=== PATIENT | female | born 1995 | race Two or more races ===

== ENCOUNTER 2019-07-03 10:23 | Emergency (ER) | payer MEDICAID, OTHER ==
[~2019-07-03] VITALS: Ht 167.6 cm; Wt 63.5 kg
--- NOTE | 2019-07-03 10:31 | NUR ---
patient came in to the ER c/o cough x 3 days, afebrile, no SOB, on room air, breathing evenly and unlabored. kept comfortable, will continue to monitor accordingly.
--- NOTE | 2019-07-03 10:41 | NUR ---
SEEN AND EXAMINED BY .
--- NOTE | 2019-07-03 10:55 | NUR ---
RT AT BEDSIDE FOR BREATHING TX
--- NOTE | 2019-07-03 10:59 | NUR ---
FLAT MACHINE CUTTER AT BEDSIDE
[2019-07-03] MEDS ORDERED: ALBUTEROL FS 2.5 MG/3 ML VIAL.NEB NEB ONE (11:00)
[2019-07-03] MEDS ORDERED: IPRATROPIUM NEB FS 0.5 MG/2.5 ML AMPUL.NEB NEB ONE (11:00)
[2019-07-03 11:31] VITALS: BP 122/78
--- NOTE | 2019-07-03 11:31 | NUR ---
Patient discharged to home in stable condition. Written and verbal after care instructions given. Patient verbalizes understanding of instruction.
== END 2019-07-03 11:31 | disposition home or self-care (01) ==
LOC: ER 10:28
DX: J45.909 Unspecified asthma, uncomplicated (principal); Z98.890 Other specified postprocedural states
CPT/HCPCS: 71045-TC

== ENCOUNTER 2023-02-02 12:31 | Emergency (ER) | payer MEDICAID, OTHER ==
[~2023-02-02] VITALS: Ht 167.6 cm; Wt 68.0 kg
[2023-02-02 12:31] VITALS: BP 136/79
--- NOTE | 2023-02-02 12:31 | NUR ---
BIBS C/O SORE THROAT SINCE THIS WEDNESDAY STATED SHE HAD A NEW SEXUAL PARTNER A COUPLE DAYS PRIOR TO WEDNESDAY AND HAS CONCERNS
[2023-02-02] MEDS ORDERED: CEFTRIAXONE 500 MG VIAL ONE (12:49)
[2023-02-02] MEDS ORDERED: AMOX-430 PO (12:55)
[2023-02-02] MEDS ORDERED: DOXY100C2 PO (12:55)
[2023-02-02] MEDS ORDERED: IBUP-1955 PO (12:55)
[2023-02-02] MEDS ORDERED: CEFTRIAXONE 1 G VIAL IM ONE (13:00)
[2023-02-02] MEDS ORDERED: DEXAMETHASONE SOD PHOSPHATE 10 MG/ML VIAL IM ONE (13:00)
--- NOTE | 2023-02-02 13:09 | NUR ---
URINE SAMPLE OBTAINED SENT TO LAB
--- NOTE | 2023-02-02 13:09 | NUR ---
STREP AND CHLAMIDIA SWAB DONE , SENT TO LAB
[2023-02-02] MEDS ORDERED: DEXAMETHASONE SOD PHOSPHATE 10 MG/ML VIAL ONE (13:14)
--- NOTE | 2023-02-02 13:26 | NUR ---
Patient discharged to home in stable condition. Written and verbal after care instructions given. Patient verbalizes understanding of instruction.
== END 2023-02-02 13:30 | disposition home or self-care (01) ==
LOC: ER 12:35
DX: J02.9 Acute pharyngitis, unspecified (principal); Z11.3 Encounter for screening for infections with a predominantly sexual mode of transmission
CPT/HCPCS: 99284; 96372 ×2; 87880; 87491 ×2; 87591; J1100; J0696; 86403-TC

== ENCOUNTER 2025-09-16 13:10 | Emergency (ER) | payer OTHER ==
[~2025-09-16] VITALS: Ht 167.6 cm; Wt 66.7 kg
[~2025-09-16 13:10] MED LIST: AMOX-430 PO; DOXY100C2 PO; IBUP-1955 PO
[2025-09-16 13:16] VITALS: BP 127/76; TEMP 98.1; O2SAT 100
[2025-09-16] MEDS ORDERED: IBUPROFEN 600 MG TABLET ONE (13:28)
[2025-09-16] MEDS: IBUPROFEN 600 MG TABLET PO ONE (13:30)
[2025-09-16] MEDS ORDERED: IBUP-1953 PO (14:20)
[2025-09-16] MEDS ORDERED: BENZ1LOZ30 MM (14:20)
[2025-09-16] MEDS ORDERED: FEXO180T94 PO (14:20)
[2025-09-16 15:44] LABS: MONOTEST NEGATIVE (NEGATIVE)
== END 2025-09-16 14:35 | disposition home or self-care (01) ==
LOC: ER 13:10
DX: J06.9 Acute upper respiratory infection, unspecified (principal); R09.82 Postnasal drip; Z20.822 Contact with and (suspected) exposure to COVID-19
CPT/HCPCS: 36415; 86308-TC; 86403-TC; 87070-TC